=== PATIENT | male | born 1960 ===

== ENCOUNTER 2018-08-19 17:49 | Observation (INO) | payer OTHER ==
--- NOTE | 2018-08-19 19:07 | ED PDOC ---
HPI: Chest Pain Time Seen by Provider: 08/19/18 18:29 Chief Complaint (Nursing): Chest Pain Chief Complaint (Provider): Chest Pain History Per: Patient History/Exam Limitations: no limitations Onset/Duration Of Symptoms: Hrs (x7) Current Symptoms Are (Timing): Still Present Additional Complaint(s): 58 y/o male with a PMHx or HTN, DM and hypercholesterolemia presents to the ED for evaluation of chest pain, since noon. Patient states that while at work today, he developed pressure like pain that has been coming and going since onset. Patient states pain is associated with shortness of breath, chills and shakiness. Patient additionally complains of a dry cough for one month. Patient reports he is compliant with medication. Denies fever and leg swelling. PMD: At [facility] in . Past Medical History Reviewed: Historical Data Vital Signs: Last Vital Signs Temp 98.8 F 08/19/18 17:53 Pulse 122 H 08/19/18 17:53 Resp 20 08/19/18 17:53 BP 140/69 08/19/18 17:53 Pulse Ox 98 08/19/18 17:53 - Medical History PMH: Diabetes, HTN, Hypercholesterolemia - Surgical History Surgical History: No Surg Hx - Family History Family History: States: Diabetes, Hypertension - Social History Current smoker - smoking cessation education provided: No Alcohol: None Drugs: Denies - Home Medications Home Medications: Ambulatory Orders Medication Instructions Recorded Clopidogrel [Plavix] 75 mg PO DAILY #30 tab 08/20/18 GlipiZIDE SR [Glucotrol XL] 5 mg PO DAILY #30 tab 08/20/18 RX: Atorvastatin [Lipitor] 20 mg PO DAILY #30 tab 08/20/18 RX: Lisinopril [Prinivil] 10 mg PO DAILY #30 tab 08/20/18 RX: Metoprolol Tartrate [Lopressor] 50 mg PO BID #60 tablet 08/20/18 RX: Omeprazole 20 mg PO DAILY #30 tablet. 08/20/18 - Allergies Allergies/Adverse Reactions: Allergies Allergy/AdvReac Type Severity Reaction Status Date / Time No Known Allergies Allergy Verified 08/19/18 17:53 Review of Systems ROS Statement: Except As Marked, All Systems Reviewed And Found Negative (as per HPI) Constitutional: Positive for: Chills (and shakiness) Cardiovascular: Positive for: Chest Pain (pressure like ) Respiratory: Positive for: Cough (dry), Shortness of Breath Musculoskeletal: Negative for: Leg Pain (swelling) Physical Exam - Reviewed Nursing Documentation Reviewed: Yes Vital Signs Reviewed: Yes - Physical Exam Appears: Positive for: Non-toxic, No Acute Distress Head Exam: Positive for: ATRAUMATIC, NORMOCEPHALIC Skin: Positive for: Warm, Dry Eye Exam: Positive for: EOMI, PERRL ENT: Positive for: Pharynx Is (clear) Neck: Positive for: Painless ROM, Supple Cardiovascular/Chest: Positive for: Tachycardia (with regular rhythm). Negative for: Murmur Respiratory: Positive for: Normal Breath Sounds. Negative for: Respiratory Distress Gastrointestinal/Abdominal: Positive for: Soft. Negative for: Tenderness Back: Positive for: Normal Inspection. Negative for: Decreased ROM Extremity: Positive for: Other (Diffuse tremors on extremities). Negative for: Swelling Lymphatic: Negative for: Adenopathy Neurologic/Psych: Positive for: Alert, Mood/Affect (Mildly Anxious Affect). Negative for: Motor/Sensory Deficits - Laboratory Results Result Diagrams: 08/20/18 04:20 08/20/18 04:20 - ECG O2 Sat by Pulse Oximetry: 98 (RA) Pulse Ox Interpretation: Normal Medical Decision Making Medical Decision Making: Time: 1853 Impression: Chest pain with cardiac risk factors -- Patient needs hospitalization for serial troponin to rule out ACS, pending ER workup Differentials include but not limited to pneumonia, Pulmonary Embolism, hyperthyroidism, electrolyte abnormalities and dehydration Plan: -- Type and Screen -- EKG -- B-Type Natriuretic -- CMP -- Lact Acid, Plasma -- Magnesium -- Phosphorus -- TSH -- Troponin I -- ED Urine Dipstick -- Troponin I -- ED Urine Dipstick -- CBC with differentials -- D Dimer [COAG] -- PTT -- Prothrombin Time -- CXR Portable -- Aspirin 325 mg PO -- Blood Culture -- Template Clerk -- IV Insertion -- Glucose, Blood, POC 2200 Labs demonstrate elevated lactic acid, otherwise no emergently significant abnormalities. Pt's HR improved with hydration. VANESSA Hu Hospitalist for placement in observation for chest pain to r/o ACS. Scribe Attestation: Documented by Gayle Fam acting as a scribe for Fabienne Jacobs MD. Provider Scribe Attestation: All medical record entries made by the Scribe were at my direction and personally dictated by me. I have reviewed the chart and agree that the record accurately reflects my personal performance of the history, physical exam, medical decision making, and the department course for this patient. I have also personally directed, reviewed, and agree with the discharge instructions and disposition. Disposition - Clinical Impression Clinical Impression: Chest pain Counseled Patient/Family Regarding: Studies Performed, Diagnosis - Disposition Disposition Time: 23:00 Condition: FAIR - Pt Status Changed To: Hospital Disposition Of: Observation - POA Present On Arrival: None
[2018-08-19 19:16] LABS: BASO # 0.1 K/uL (0.0-0.2); EOS # 0.1 K/uL (0.0-0.7); EOS % 1.6 % (0.0-4.0); HEMOGLOBIN 13.9 g/dL (12.0-18.0); LYMPH # 1.4 K/uL (1.0-4.3); LYMPH % 20.7 % (20.0-40.0); MEAN CELL VOLUME 85.8 fl (80.0-94.0); MEAN CORPUSCULAR HEMOGLOBIN 29.2 pg (27.0-31.0); MEAN CORPUSCULAR HGB CONC 34.1 g/dL (33.0-37.0); MEAN PLATELET VOLUME 8.2 fl (7.2-11.7); MONO # 0.5 K/uL (0.0-0.8); MONO % 6.9 % (0.0-10.0); NEUT # 4.8 K/uL (1.8-7.0); NEUT % 69.8 % (50.0-75.0); NRBC % 0.1 % (0.0-0.0); RBC 4.75 Mil/uL (4.40-5.90); RED CELL DISTRIBUTION WIDTH 13.7 % (11.5-14.5); WHITE BLOOD COUNT 6.9 K/uL (4.8-10.8)
[2018-08-19 19:25] LABS: PROTHROMBIN TIME 10.7 Seconds (9.8-13.1)
[2018-08-19 19:26] LABS: PARTIAL THROMBOPLASTIN TIME 29.9 Seconds (25.6-37.1)
[2018-08-19 19:30] LABS: D DIMER < 200 ng/mlDDU (0-230)
[2018-08-19 19:38] LABS: ALB/GLOB RATIO 1.3 (1.0-2.1); ALBUMIN 4.4 g/dL (3.5-5.0); ALT/SGPT 32 U/L (21-72); AST/SGOT 31 U/L (17-59); BLOOD UREA NITROGEN 20 mg/dl (9-20); CALCIUM 10.1 mg/dL (8.4-10.2); GFR NON-AFRICAN AMERICAN > 60
[2018-08-19] MEDS ORDERED: Sodium Chloride 0.9% 1,000 ML IV STA (19:47)
[2018-08-19] MEDS ORDERED: Alum-Mag Hydrox-Simethicone Susp (30 mL) PO PRN (21:22)
--- NOTE | 2018-08-19 21:25 | CP.PCM.HP ---
History of Present Illness - History of Present Illness History of Present Illness: CC: CP HPI: This is a 58 y/o male with MHx significant for DM2, HTN, and HLD who comes in with c/o CP which started at noon. Patient was at work, but not doing any extremely strenuous when he developed pressure like sensation in mid chest. There was no radiation to the arms. There was a burning sensation in his throat however. He did have SOB and felt a little shaky. Denies f/c/n/v/d. States that normally he does not have SOB or SHARIF, except an episode 3 months prior. Patient states that at that time, he went to [place] for similar symptoms. He states he does not remember having and echo or a stress test at the time, just a CXR. He was told his heart was 'fine' but was started on Plavix and a statin he states. He has taken the Plavix, but not the statin. Otherwise he has been taking all his medications. Patient does note some palpitations occasionally, but denies taking OTC cold/congestion medications, energy drinks or similar things. Patient notes that recently he has been having heartburn like symptoms, not part icularly correlated to any food. PCP: [facility] ROS: 14 systems reviewed, negative other than HPI MHx: HTN, HLD, DM2 SHx: None Allergies: NKDA Medications: Per med rec Family Hx: DM2 runs in family Social Hx: Lives with family, no tobacco, no EtOH, no substances/supplements Present on Admission - Present on Admission Any Indicators Present on Admission: No Past Patient History - Past Social History Alcohol: None Drugs: Denies - CARDIAC Hx Hypercholesterolemia: Yes Hx Hypertension: Yes - ENDOCRINE/METABOLIC Hx Diabetes Mellitus Type 2: Yes - GENITOURINARY/GYNECOLOGICAL Hx Genitourinary Disorders: No - PSYCHIATRIC Hx Psychophysiologic Disorder: No Hx Substance Use: No - SURGICAL HISTORY Hx Surgeries: No - ANESTHESIA Hx Anesthesia: No Meds Allergies/Adverse Reactions: Allergies Allergy/AdvReac Type Severity Reaction Status Date / Time No Known Allergies Allergy Verified 08/19/18 17:53 Physical Exam - Constitutional Appears: No Acute Distress - Head Exam Head Exam: ATRAUMATIC, NORMOCEPHALIC - Eye Exam Eye Exam: EOMI, PERRL - ENT Exam ENT Exam: Mucous Membranes Dry - Neck Exam Neck exam: Positive for: Full Rom - Respiratory Exam Respiratory Exam: Clear to Auscultation Bilateral, NORMAL BREATHING PATTERN - Cardiovascular Exam Cardiovascular Exam: Tachycardia, REGULAR RHYTHM, +S1, +S2 - GI/Abdominal Exam GI & Abdominal Exam: Normal Bowel Sounds, Soft - Extremities Exam Extremities exam: Positive for: full ROM, normal inspection - Neurological Exam Neurological exam: Alert, Oriented x3 - Psychiatric Exam Psychiatric exam: Normal Affect, Normal Mood - Skin Skin Exam: Dry, Warm Results - Vital Signs Recent Vital Signs: Last Vital Signs Temp 97.6 F 08/19/18 20:52 Pulse 108 H 08/19/18 20:52 Resp 18 08/19/18 20:52 BP 142/83 08/19/18 20:52 Pulse Ox 97 08/19/18 20:52 - Labs Result Diagrams: 08/19/18 19:00 08/19/18 19:00 Labs: Laboratory Results - last 24 hr 08/19/18 08/19/18 08/19/18 19:00 19:00 19:00 WBC 6.9 RBC 4.75 Hgb 13.9 Hct 40.7 MCV 85.8 MCH 29.2 MCHC 34.1 RDW 13.7 Plt Count 258 MPV 8.2 Neut % (Auto) 69.8 Lymph % (Auto) 20.7 [place] % (Auto) 6.9 Eos % (Auto) 1.6 Baso % (Auto) 1.0 Neut # (Auto) 4.8 Lymph # (Auto) 1.4 [place] # (Auto) 0.5 Eos # (Auto) 0.1 Baso # (Auto) 0.1 PT INR APTT D-Dimer, Quantitative Sodium 138 Potassium 4.8 Chloride 99 Carbon Dioxide 28 Anion Gap 16 BUN 20 Creatinine 0.7 L Est GFR ( Amer) > 60 Est GFR (Non-Af Amer) > 60 Random Glucose 181 H Lactic Acid 2.8 H Calcium 10.1 Phosphorus 3.8 Magnesium 1.7 Total Bilirubin 0.5 AST 31 ALT 32 Alkaline Phosphatase 57 Troponin I < 0.0120 NT-Pro-B Natriuret Pep 66.0 Total Protein 7.7 Albumin 4.4 Globulin 3.3 Albumin/Globulin Ratio 1.3 TSH 3rd Generation 1.42 Blood Type Antibody Screen BBK History Checked 08/19/18 08/19/18 19:00 19:00 WBC RBC Hgb Hct MCV MCH MCHC RDW Plt Count MPV Neut % (Auto) Lymph % (Auto) [place] % (Auto) Eos % (Auto) Baso % (Auto) Neut # (Auto) Lymph # (Auto) [place] # (Auto) Eos # (Auto) Baso # (Auto) PT 10.7 INR 1.0 APTT 29.9 D-Dimer, Quantitative < 200 Sodium Potassium Chloride Carbon Dioxide Anion Gap BUN Creatinine Est GFR ( Amer) Est GFR (Non-Af Amer) Random Glucose Lactic Acid Calcium Phosphorus Magnesium Total Bilirubin AST ALT Alkaline Phosphatase Troponin I NT-Pro-B Natriuret Pep Total Protein Albumin Globulin Albumin/Globulin Ratio TSH 3rd Generation Blood Type A POSITIVE Antibody Screen Negative BBK History Checked No verified bt - EKG Data EKG Interpreted by: Myself EKG shows normal: Sinus rhythm Rate: Tachycardia - EKG Data EKG comments: EKG sinus tach; PVCs on tele - Imaging and Cardiology Chest x-ray Status: Image reviewed by me (no acute findings) Assessment & Plan (1) Chest pain Assessment and Plan: 58 y/o male with HTN, HLD, and DM2 presenting with chest pain, tachycardia, and mildly elevated LA. 1) CP -- r/o ACS; HLD -Tele -Serial trops -AM EKG -Echo in AM -If all workup here is normal, patient needs to be set up with an outpatient stress test for near future -Continue Plavix 75 that patient is on for now; will not give further doses of ASA at this time -Will start on low dose statin, as patient states he was Rx'ed this, but never started it -SLNG PRN 2) Tachycardia -- unclear etiology; appears to be sinus tach, no significant concern for PE given normal D dimer -Will give 1 L NS; consider patient may be somewhat vol depleted 3) Elevated LA -- no evidence of infection -Will hydrate patient overnight -Hold Metformin -Recheck in AM 4) GERD -- appears to have GERD symptoms -Will start on 2 week trial of protonix -Maalox PRN for acute symptoms 5) DM2 -DM diet -ACHS accucheck with SSI -Cont Glipizide -Hold metformin for now 6) HTN -- cont home medications 7) DVT PPx -- Patient is mobile, SCDs for now Status: Acute (2) Tachycardia Status: Acute (3) Elevated lactic acid level Status: Acute (4) GERD (gastroesophageal reflux disease) Status: Acute (5) HLD (hyperlipidemia) Status: Acute (6) HTN (hypertension) Status: Acute (7) DM2 (diabetes mellitus, type 2) Status: Acute (8) DVT prophylaxis Status: Acute
[2018-08-19] MEDS ORDERED: Sodium Chloride 0.9% 1,000 ML IV SCH (21:30)
[2018-08-19] MEDS: Insulin Lispro (humaLOG) 100 Units/ml Inj SC SCH (23:00)
[2018-08-20 06:01] LABS: HEMOGLOBIN 12.2 g/dL (12.0-18.0); MEAN CELL VOLUME 86.2 fl (80.0-94.0); MEAN CORPUSCULAR HEMOGLOBIN 29.4 pg (27.0-31.0); MEAN CORPUSCULAR HGB CONC 34.1 g/dL (33.0-37.0); RBC 4.16 Mil/uL (4.40-5.90); RED CELL DISTRIBUTION WIDTH 13.4 % (11.5-14.5)
[2018-08-20] MEDS: Insulin Lispro (humaLOG) 100 Units/ml Inj SC SCH ×2 (06:35→13:20)
[2018-08-20 06:54] LABS: BLOOD UREA NITROGEN 12 mg/dl (9-20); CALCIUM 8.9 mg/dL (8.4-10.2); GFR NON-AFRICAN AMERICAN > 60
[2018-08-20] MEDS ORDERED: Pantoprazole 40 mg EC Tab PO SCH (09:00)
--- NOTE | 2018-08-20 11:53 | RAD ---
Date of service: 08/19/2018 HISTORY: chest pain COMPARISON: No prior. FINDINGS: LUNGS: No active pulmonary disease. PLEURA: No significant pleural effusion identified, no pneumothorax apparent. CARDIOVASCULAR: No radiographic findings to suggest acute or significant cardiovascular disease. OSSEOUS STRUCTURES: No significant abnormalities. VISUALIZED UPPER ABDOMEN: Normal. OTHER FINDINGS: None. IMPRESSION: No active disease. Concordant results with the preliminary interpretation rendered by the emergency department physician procedure.
--- NOTE | 2018-08-20 12:00 | CARD ---
APPROVED REPORT Date of service: 08/19/2018 EKG Measurement Heart [id number] <Conclusion> Sinus tachycardia Otherwise normal ECG
[2018-08-20 12:06] VITALS: BP 124/81; PULSE 98; RESP 18; TEMP 98.1
--- NOTE | 2018-08-20 13:59 | CP.PCM.DIS ---
<Aleisha Ga - Last Filed: 08/20/18 14:53> Provider - Provider Date of Admission: 08/19/18 20:14 Attending physician: Mary Hu MD Time Spent in preparation of Discharge (in minutes): 45 Diagnosis - Discharge Diagnosis (1) Chest pain Status: Resolved (2) DM2 (diabetes mellitus, type 2) Status: Chronic (3) Elevated lactic acid level Status: Acute (4) GERD (gastroesophageal reflux disease) Status: Acute (5) HLD (hyperlipidemia) Status: Acute (6) HTN (hypertension) Status: Chronic (7) Tachycardia Status: Acute Hospital Course - Lab Results Lab Results: Most Recent Lab Values WBC 5.0 K/uL (4.8-10.8) 08/20/18 04:20 RBC 4.16 Mil/uL (4.40-5.90) L 08/20/18 04:20 Hgb 12.2 g/dL (12.0-18.0) 08/20/18 04:20 Hct 35.9 % (35.0-51.0) 08/20/18 04:20 MCV 86.2 fl (80.0-94.0) 08/20/18 04:20 MCH 29.4 pg (27.0-31.0) 08/20/18 04:20 MCHC 34.1 g/dL (33.0-37.0) 08/20/18 04:20 RDW 13.4 % (11.5-14.5) 08/20/18 04:20 Plt Count 242 K/uL (130-400) 08/20/18 04:20 MPV 8.2 fl (7.2-11.7) 08/19/18 19:00 Neut % (Auto) 69.8 % (50.0-75.0) 08/19/18 19:00 Lymph % (Auto) 20.7 % (20.0-40.0) 08/19/18 19:00 [place] % (Auto) 6.9 % (0.0-10.0) 08/19/18 19:00 Eos % (Auto) 1.6 % (0.0-4.0) 08/19/18 19:00 Baso % (Auto) 1.0 % (0.0-2.0) 08/19/18 19:00 Neut # (Auto) 4.8 K/uL (1.8-7.0) 08/19/18 19:00 Lymph # (Auto) 1.4 K/uL (1.0-4.3) 08/19/18 19:00 [place] # (Auto) 0.5 K/uL (0.0-0.8) 08/19/18 19:00 Eos # (Auto) 0.1 K/uL (0.0-0.7) 08/19/18 19:00 Baso # (Auto) 0.1 K/uL (0.0-0.2) 08/19/18 19:00 PT 10.7 Seconds (9.8-13.1) 08/19/18 19:00 INR 1.0 08/19/18 19:00 APTT 29.9 Seconds (25.6-37.1) 08/19/18 19:00 D-Dimer, Quantitative < 200 ng/mlDDU (0-230) 08/19/18 19:00 Sodium 138 mmol/l (132-148) 08/20/18 04:20 Potassium 3.6 MMOL/L (3.6-5.0) 08/20/18 04:20 Chloride 105 mmol/L (98-107) 08/20/18 04:20 Carbon Dioxide 25 mmol/L (22-30) 08/20/18 04:20 Anion Gap 12 (10-20) 08/20/18 04:20 BUN 12 mg/dl (9-20) 08/20/18 04:20 Creatinine 0.5 mg/dl (0.8-1.5) L 08/20/18 04:20 Est GFR ( Amer) > 60 08/20/18 04:20 Est GFR (Non-Af Amer) > 60 08/20/18 04:20 POC Glucose (mg/dL) 211 mg/dL (65-110) H 08/20/18 10:48 Random Glucose 118 mg/dL (75-110) H 08/20/18 04:20 Lactic Acid 2.5 MMOL/L (0.7-2.1) H 08/20/18 04:20 Calcium 8.9 mg/dL (8.4-10.2) 08/20/18 04:20 Phosphorus 3.8 mg/dl (2.5-4.5) 08/19/18 19:00 Magnesium 1.7 MG/DL (1.6-2.3) 08/19/18 19:00 Total Bilirubin 0.5 mg/dl (0.2-1.3) 08/19/18 19:00 AST 31 U/L (17-59) 08/19/18 19:00 ALT 32 U/L (21-72) 08/19/18 19:00 Alkaline Phosphatase 57 U/L (38-126) 08/19/18 19:00 Troponin I < 0.0120 ng/mL (0.00-0.120) 08/20/18 11:19 NT-Pro-B Natriuret Pep 66.0 pg/ml (0-900) 08/19/18 19:00 Total Protein 7.7 G/DL (6.3-8.2) 08/19/18 19:00 Albumin 4.4 g/dL (3.5-5.0) 08/19/18 19:00 Globulin 3.3 gm/dL (2.2-3.9) 08/19/18 19:00 Albumin/Globulin Ratio 1.3 (1.0-2.1) 08/19/18 19:00 TSH 3rd Generation 1.42 mIU/ML (0.46-4.68) 08/19/18 19:00 Blood Type A POSITIVE 08/19/18 19:00 Blood Type Confirm A POSITIVE 08/19/18 21:00 Antibody Screen Negative 08/19/18 19:00 BBK History Checked No verified bt 08/19/18 19:00 - Hospital Course Hospital Course: 58 y/o M with medical hx of DM2, HTN, and HLD was admitted 08/19/2018 for chest pain. EKG showed sinus tach at rate of 116 bpm, pro-bnp was 66, troponins were 0.0120 x 2, and d-dimer <200. Lactic acid was initially, 2.8, and today was 2.5. Metformin was stopped as a result. CXR was performed and showed no active disease. Echo was done as well. 1) Chest pain (resolved) -Patient will follow up with cardiology as an outpatient for stress test. -Script given for Plavix 75mg PO QD. 2) DM2 -Script given for Glipizide -Metformin has been discontinued due to lactic acidosis (2.5 today). 3) Elevated Lactic acid -Metformin has been discontinued due to lactic acidosis (2.5 today). 4)GERD -Script sent for Omeprazole. 5)Tachycardia (Pulse currently borderline-98bpm) -D dimer <200 -Script sent for Metoprolol 50mg PO BID. 6) HTN -Script sent for Metoprolol 50mg PO BID. 7) HLD -Script sent for Lipitor 20mg PO QD. Discharge Exam - Head Exam Head Exam: ATRAUMATIC, NORMOCEPHALIC - Neck Exam Neck exam: Full Rom - Respiratory Exam Respiratory Exam: Clear to PA & Lateral - Cardiovascular Exam Cardiovascular Exam: REGULAR RHYTHM, +S1, +S2 - Extremities Exam Additional comments: calves nontender - Neurological Exam Neurological exam: Alert, Oriented x3 - Psychiatric Exam Psychiatric exam: Normal Affect, Normal Mood Discharge Plan - Discharge Medications Prescriptions: Atorvastatin [Lipitor] 20 mg PO DAILY #30 tab Clopidogrel [Plavix] 75 mg PO DAILY #30 tab GlipiZIDE SR [Glucotrol XL] 5 mg PO DAILY #30 tab Lisinopril [Prinivil] 10 mg PO DAILY #30 tab Metoprolol Tartrate [Lopressor] 50 mg PO BID #60 tablet Omeprazole 20 mg PO DAILY #30 tablet.dr - Follow Up Plan Condition: GOOD Disposition: HOME/ ROUTINE Instructions: Chest Pain (DC) Additional Instructions: -ff up with PMD jim -Cardio appt at the Cardio clinic for further work up -If chest pain worsens, please return to the Emergency Department Referrals: [facility] [employer] [facility] [Outside] [facility] [Outside] David Lorenz MD [Staff Provider] - <Inga Patton - Last Filed: 08/20/18 15:17> Provider - Provider Date of Admission: 08/19/18 20:14 Attending physician: Mary Hu MD Hospital Course - Lab Results Lab Results: Most Recent Lab Values WBC 5.0 K/uL (4.8-10.8) 08/20/18 04:20 RBC 4.16 Mil/uL (4.40-5.90) L 08/20/18 04:20 Hgb 12.2 g/dL (12.0-18.0) 08/20/18 04:20 Hct 35.9 % (35.0-51.0) 08/20/18 04:20 MCV 86.2 fl (80.0-94.0) 08/20/18 04:20 MCH 29.4 pg (27.0-31.0) 08/20/18 04:20 MCHC 34.1 g/dL (33.0-37.0) 08/20/18 04:20 RDW 13.4 % (11.5-14.5) 08/20/18 04:20 Plt Count 242 K/uL (130-400) 08/20/18 04:20 MPV 8.2 fl (7.2-11.7) 08/19/18 19:00 Neut % (Auto) 69.8 % (50.0-75.0) 08/19/18 19:00 Lymph % (Auto) 20.7 % (20.0-40.0) 08/19/18 19:00 [place] % (Auto) 6.9 % (0.0-10.0) 08/19/18 19:00 Eos % (Auto) 1.6 % (0.0-4.0) 08/19/18 19:00 Baso % (Auto) 1.0 % (0.0-2.0) 08/19/18 19:00 Neut # (Auto) 4.8 K/uL (1.8-7.0) 08/19/18 19:00 Lymph # (Auto) 1.4 K/uL (1.0-4.3) 08/19/18 19:00 [place] # (Auto) 0.5 K/uL (0.0-0.8) 08/19/18 19:00 Eos # (Auto) 0.1 K/uL (0.0-0.7) 08/19/18 19:00 Baso # (Auto) 0.1 K/uL (0.0-0.2) 08/19/18 19:00 PT 10.7 Seconds (9.8-13.1) 08/19/18 19:00 INR 1.0 08/19/18 19:00 APTT 29.9 Seconds (25.6-37.1) 08/19/18 19:00 D-Dimer, Quantitative < 200 ng/mlDDU (0-230) 08/19/18 19:00 Sodium 138 mmol/l (132-148) 08/20/18 04:20 Potassium 3.6 MMOL/L (3.6-5.0) 08/20/18 04:20 Chloride 105 mmol/L (98-107) 08/20/18 04:20 Carbon Dioxide 25 mmol/L (22-30) 08/20/18 04:20 Anion Gap 12 (10-20) 08/20/18 04:20 BUN 12 mg/dl (9-20) 08/20/18 04:20 Creatinine 0.5 mg/dl (0.8-1.5) L 08/20/18 04:20 Est GFR ( Amer) > 60 08/20/18 04:20 Est GFR (Non-Af Amer) > 60 08/20/18 04:20 POC Glucose (mg/dL) 211 mg/dL (65-110) H 08/20/18 10:48 Random Glucose 118 mg/dL (75-110) H 08/20/18 04:20 Lactic Acid 2.5 MMOL/L (0.7-2.1) H 08/20/18 04:20 Calcium 8.9 mg/dL (8.4-10.2) 08/20/18 04:20 Phosphorus 3.8 mg/dl (2.5-4.5) 08/19/18 19:00 Magnesium 1.7 MG/DL (1.6-2.3) 08/19/18 19:00 Total Bilirubin 0.5 mg/dl (0.2-1.3) 08/19/18 19:00 AST 31 U/L (17-59) 08/19/18 19:00 ALT 32 U/L (21-72) 08/19/18 19:00 Alkaline Phosphatase 57 U/L (38-126) 08/19/18 19:00 Troponin I < 0.0120 ng/mL (0.00-0.120) 08/20/18 11:19 NT-Pro-B Natriuret Pep 66.0 pg/ml (0-900) 08/19/18 19:00 Total Protein 7.7 G/DL (6.3-8.2) 08/19/18 19:00 Albumin 4.4 g/dL (3.5-5.0) 08/19/18 19:00 Globulin 3.3 gm/dL (2.2-3.9) 08/19/18 19:00 Albumin/Globulin Ratio 1.3 (1.0-2.1) 08/19/18 19:00 TSH 3rd Generation 1.42 mIU/ML (0.46-4.68) 08/19/18 19:00 Blood Type A POSITIVE 08/19/18 19: Blood Type Confirm A POSITIVE 08/19/18 21:00 Antibody Screen Negative 08/19/18 19:00 BBK History Checked No verified bt 08/19/18 19:00 Attending/Attestation - Attestation I have personally seen and examined this patient.: Yes I have fully participated in the care of the patient.: Yes I have reviewed all pertinent clinical information, including history, physical exam and plan: Yes Notes (Text): 1. Chest Pain, ACS ruled out , pain prob GERD - trop x 3 negative - ECHO normal wall motion -EKG : no caute change - start PPI - cont zplavix, stat BB, TOMAS and statin - ff up Cardio clinic jim , further cardiac work up as outpt 2. Lactic Acidosis prob sec to Metformin - d/c Metformin 3. DM type II cont Glipizide
[2018-08-20 15:54] VITALS: O2SAT 98
--- NOTE | 2018-08-20 16:23 | CARD ---
APPROVED REPORT Date of service: 08/20/2018 EXAM: Two-dimensional and M-mode echocardiogram with Doppler and color Doppler. Other Information Quality : GoodRhythm : NSR INDICATION Chest Pain 2D DIMENSIONS IVSd0.90 (0.7-1.1cm)LVDd4.37 (3.9-5.9cm) LVOT Diameter1.95 (1.8-2.4cm)PWd0.69 (0.7-1.1cm) IVSs0.96 (0.8-1.2cm)LVDs3.11 (2.5-4.0cm) FS (%) 28.9 %PWs1.03 (0.8-1.2cm) M-Mode DIMENSIONS Left Atrium (MM)3.89 (2.5-4.0cm)IVSd0.83 (0.7-1.1cm) Aortic Root3.94 (2.2-3.7cm)LVDd5.46 (4.0-5.6cm) Aortic Cusp Exc.1.76 (1.5-2.0cm)PWd0.80 (0.7-1.1cm) IVSs0.97 cmFS (%) 38 % LVDs3.36 (2.0-3.8cm)PWs1.41 cm Aortic Valve AoV Peak Ueadvmxf138.1cm/sAoV VTI20.7cmAO Peak GR.6mmHg LVOT Peak Juoopefx51.1cm/sLVOT VTI19.55cmAO Mean GR.3mmHg DUC (VMAX)1.83uq8CKZ (VTI)1.63cm2 Mitral Valve E/A ratio0.0 TDI E/Lateral E'0.0E/Medial E'0.0 Tricuspid Valve TR Peak [id number]/sRAP [id number] Peak Gr.23mmHg CUPS96uxOb LEFT VENTRICLE The left ventricle is normal size. There is normal left ventricular wall thickness. The left ventricular systolic function is normal. The estimated ejection fraction is 55-60%. No regional wall motion abnormalities noted.. Transmitral Doppler flow pattern is Grade I-abnormal relaxation pattern. No left ventricle thrombus noted on this study. There is no ventricular septal defect visualized. There is no left ventricular aneurysm. There is no mass noted in the left ventricle. RIGHT VENTRICLE The right ventricle is normal size. There is normal right ventricular wall thickness. The right ventricular systolic function is normal. ATRIA The left atrium size is normal. The right atrium size is normal. The interatrial septum is intact with no evidence for an atrial septal defect. AORTIC VALVE The aortic valve is normal in structure. No aortic regurgitation is present. There is no aortic valvular stenosis. There is no aortic valvular vegetation. MITRAL VALVE The mitral valve is normal in structure. There is no evidence of mitral valve prolapse. There is no mitral valve stenosis. There is no mitral valve regurgitation noted. TRICUSPID VALVE The tricuspid valve is normal in structure. There is trace to mild tricuspid regurgitation. RVSP is calculated at 28 mm Hg. There is no tricuspid valve prolapse or vegetation. There is no tricuspid valve stenosis. PULMONIC VALVE The pulmonary valve is normal in structure. There is no pulmonic valvular regurgitation. There is no pulmonic valvular stenosis. GREAT VESSELS The aortic root is normal in size. The ascending aorta is normal in size. The pulmonary artery is normal. The IVC is normal in size and collapses >50% with inspiration. PERICARDIAL EFFUSION There is no pericardial effusion. There is no pleural effusion. <Conclusion> The estimated ejection fraction is 55-60%. Transmitral Doppler flow pattern is Grade I-abnormal relaxation pattern. The left atrium size is normal. There is trace to mild tricuspid regurgitation. RVSP is calculated at 28 mm Hg.
== END 2018-08-20 16:00 | disposition home or self-care (01) ==
LOC: H.ER 17:49 → H.ERHOLD 20:14 → H.TEL 22:20
PROVIDERS: ADMIT Internal Medicine; ATTEND Internal Medicine
DX: R07.9 Chest pain, unspecified (principal); I10 Essential (primary) hypertension; E11.9 Type 2 diabetes mellitus without complications; E78.00 Pure hypercholesterolemia, unspecified; E78.5 Hyperlipidemia, unspecified; E87.2 Acidosis; K21.9 Gastro-esophageal reflux disease without esophagitis; Z79.02 Long term (current) use of antithrombotics/antiplatelets; Z83.3 Family history of diabetes mellitus; Z79.84 Long term (current) use of oral hypoglycemic drugs; R00.0 Tachycardia, unspecified; R00.2 Palpitations; R74.0 Nonspecific elevation of levels of transaminase and lactic acid dehydrogenase [LDH]
CPT/HCPCS: 36415; 71045; 80048; 80053; 82948; 83605; 83735; 83880; 84100; 84443; 84484; 85025; 85027; 85378; 85610; 85730; 86850; 86900; 87040; 93005; 93306; 96360; 99283; G0378; J7030

== ENCOUNTER 2019-01-24 09:57 | Inpatient (IN) | payer OTHER, SELFPAY ==
--- NOTE | 2019-01-24 12:06 | ED PDOC ---
Lower Extremity Pain/Injury Time Seen by Provider: 01/24/19 11:36 Chief Complaint (Nursing): Lower Extremity Problem/Injury Chief Complaint (Provider): Lower Extremity Problem/Injury History Per: Patient History/Exam Limitations: no limitations Onset/Duration Of Symptoms: Persistent (x2 weeks) Current Symptoms Are (Timing): Still Present Additional Complaint(s): 58 year old male with past history of diabetes and hypertension, presents to the emergency department with a complaint of right foot pain ongoing for 2 weeks. Patient states he stepped on a nail and took antibiotics from his primary doctor upon onset. A week after, the wound had purulent discharge and was incised and drain. 3 days afterwards, wound was incised and drained again for discharge. Patient arrives today as wound continues to drain, however, began to feel throbbing pain. Otherwise, patient denies fever, chills, or further complaints. PCP: none provided Past Medical History Reviewed: Historical Data, Nursing Documentation, Vital Signs Vital Signs: Last Vital Signs Temp 98.2 F 01/24/19 10:31 Pulse 112 H 01/24/19 10:31 Resp 18 01/24/19 10:31 BP 133/85 01/24/19 10:31 Pulse Ox 99 01/24/19 10:31 - Medical History PMH: Diabetes, HTN, Hypercholesterolemia - Family History Family History: States: Diabetes, Hypertension - Social History Current smoker - smoking cessation education provided: No Alcohol: None Drugs: Denies - Home Medications Home Medications: Ambulatory Orders Medication Instructions Recorded Clopidogrel [Plavix] 75 mg PO DAILY #30 tab 08/20/18 Amoxicillin/Clavulanate [Augmentin 1 tab PO Q12 01/24/19 875 MG-125 MG Tab] Glipizide [Glucotrol] 10 mg PO DAILY 01/24/19 HCTZ/Losartan Potassium [Hyzaar 1 tab PO DAILY 01/24/19 12.5 mg-50 mg] MetFORMIN [glucoPHAGE] 1,000 mg PO BID 01/24/19 Metoprolol Tartrate [Lopressor] 50 mg PO Q12 01/24/19 - Allergies Allergies/Adverse Reactions: Allergies Allergy/AdvReac Type Severity Reaction Status Date / Time No Known Allergies Allergy Verified 01/24/19 10:31 Review of Systems ROS Statement: Except As Marked, All Systems Reviewed And Found Negative Constitutional: Negative for: Fever, Chills Musculoskeletal: Positive for: Foot Pain (right-sided with discharge) Physical Exam - Reviewed Nursing Documentation Reviewed: Yes Vital Signs Reviewed: Yes - Physical Exam Appears: Positive for: No Acute Distress Head Exam: Positive for: ATRAUMATIC, NORMOCEPHALIC Skin: Positive for: Warm, Dry Eye Exam: Positive for: EOMI, PERRL ENT: Negative for: Pharyngeal Erythema, Tonsillar Exudate Neck: Positive for: Painless ROM, Supple Cardiovascular/Chest: Positive for: Regular Rate, Rhythm. Negative for: Murmur Respiratory: Positive for: Normal Breath Sounds. Negative for: Respiratory Distress Gastrointestinal/Abdominal: Positive for: Soft. Negative for: Tenderness Back: Positive for: Normal Inspection. Negative for: Muscle Spasm Extremity: Positive for: Swelling (right-sided diffusely to forefoot not including toe), Other (1.5cm long wound with slight gapping, yellow, dried eschar, and tenderness to right plantar forefoot). Negative for: Deformity (right foot) Lymphatic: Negative for: Adenopathy Neurological/Psych: Positive for: Awake. Negative for: Motor/Sensory Deficits - Laboratory Results Result Diagrams: 01/24/19 13:00 01/24/19 13:00 - ECG O2 Sat by Pulse Oximetry: 99 (RA) Pulse Ox Interpretation: Normal Medical Decision Making Medical Decision Making: Initial Impression: right foot wound infection Differential diagnosis includes but not limited to: cellulitis; foreign body; osteomyelitis Initial Plan: * Labs * Accucheck * XR right foot Time: 1145 --Case discussed with podiatry resident who will evaluate patient at bedside. 1230p Pt to be hospitalized for osteomyelitis. VANESSA Hayden Hospitalist DW pt plan of care. 150p Labs demonstrate hyperglycemia Scribe Attestation: Documented by Charisse Morin, acting as a scribe for Fabienne Jacobs MD.. Provider Scribe Attestation: All medical record entries made by the Scribe were at my direction and personally dictated by me. I have reviewed the chart and agree that the record accurately reflects my personal performance of the history, physical exam, medical decision making, and the department course for this patient. I have also personally directed, reviewed, and agree with the discharge instructions and disposition. Disposition - Clinical Impression Clinical Impression: HTN (hypertension), Diabetic foot infection Counseled Patient/Family Regarding: Studies Performed, Diagnosis - Disposition Disposition Time: 12:30 Condition: FAIR - Pt Status Changed To: Hospital Disposition Of: Inpatient - Admit Certification Admit to Inpatient:: After my assessment, the patient will require hospitalization for at least two midnights. This is because of the severity of symptoms shown, intensity of services needed, and/or the medical risk in this patient being treated as an outpatient. - POA Present On Arrival: Poor Glycemic Control, Surgical Site Infection
[2019-01-24] MEDS ORDERED: Piperacillin/Tazobact 3.375 GM in Sodium Chloride 0.9% 100 ML IVPB STA (12:18)
[2019-01-24] MEDS ORDERED: Piperacillin/Tazobact 3.375 gm Inj IVPB ONE (12:30)
[2019-01-24] MEDS ORDERED: Vancomycin 1 g Inj ONE (12:30)
--- NOTE | 2019-01-24 12:58 | CP.PCM.CON ---
History of Present Illness - History of Present Illness History of Present Illness: Podiatry consult note for attending Dr. Tran: 58 year old male patient with PMH of DM, HTN and HLP seen and evaluated in the ED for right foot ulcer. Patient states that 2 weeks ago he stepped over a nail. 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 He states that he went to a interlocking and signal mechanic 3 days later at [place] who drain some pus from the wound then prescribed him an antibiotic (Augmentin) and local wound care with saline. Patient states that he finished one round of Abx and started another one but no improvement. he states that he went again 3 days ago to his interlocking and signal mechanic who drains some pus again from the wound. patient states that he decided to come to the ED as his foot is not improving. Patient denies any pain now. He denies any other pedal complaint. He denies any recent fevers, nausea, vomiting, cough,and shortness of breath. PMHx: DM, HTN and HLP PSHx: I&D right foot Allergies: NKDA Social Hx: denied tobacco, alcohol or rec drugs. Review of Systems - Review of Systems Review of Systems: As per HPI - Constitutional Constitutional: As Per HPI Past Patient History - Past Medical History & Family History Past Medical History?: Yes - Past Social History Alcohol: None Drugs: Denies - CARDIAC Hx Hypercholesterolemia: Yes Hx Hypertension: Yes - ENDOCRINE/METABOLIC Hx Diabetes Mellitus Type 2: Yes - MUSCULOSKELETAL/RHEUMATOLOGICAL Hx Falls: No - GENITOURINARY/GYNECOLOGICAL Hx Genitourinary Disorders: No - PSYCHIATRIC Hx Psychophysiologic Disorder: No Hx Substance Use: No - SURGICAL HISTORY Hx Surgeries: No - ANESTHESIA Hx Anesthesia: No Hx Anesthesia Reactions: No Meds Allergies/Adverse Reactions: Allergies Allergy/AdvReac Type Severity Reaction Status Date / Time No Known Allergies Allergy Verified 01/24/19 10:31 - Medications Medications: Current Medications Vancomycin HCl 1 gm/ Sodium (Chloride) 250 mls @ 166.667 mls/hr IV STAT STA; Protocol Stop: 01/24/19 13:47 Piperacillin Sod/Tazobactam (Sod 3.375 gm/ Sodium Chloride) 100 mls @ 100 mls/hr IVPB STAT STA; Protocol Stop: 01/24/19 13:17 Physical Exam - Constitutional Appears: Well, Non-toxic, No Acute Distress - Head Exam Head Exam: ATRAUMATIC, NORMOCEPHALIC - Extremities Exam Additional comments: Right lower extremity focused exam: Vascular: DP/PT are 2/4, Cap refill < 3 seconds to all digits, Temp gradient warm to cool from proximal to distal, no edema appreciated to b/l extremities. Neuro: Gross sensation intact, protective sensation diminished. Derm: An ulcer noted in the plantar aspect of the 2nd MPJ 1.9 cm X 1.2 cm X 0.5 cm. Base is necrotic. positive purulent drainage noted. Positive tracking, positive undermining, positive probe to bone. Mild lynsey-ulcerative erythema noted. MSK: Muscle power 5/5 to all groups, No pain noted on palpating the lynsey- ulcerative areas. - Neurological Exam Neurological exam: Alert, Oriented x3 - Psychiatric Exam Psychiatric exam: Normal Affect, Normal Mood Results - Vital Signs Recent Vital Signs: Last Vital Signs Temp 98.2 F 01/24/19 10:31 Pulse 112 H 01/24/19 10:31 Resp 18 01/24/19 10:31 BP 133/85 01/24/19 10:31 Pulse Ox 99 01/24/19 12:35 - Labs Result Diagrams: 01/24/19 13:00 01/24/19 13:00 Assessment & Plan - Assessment and Plan (Free Text) Assessment: 58 year old male patient with PMH of DM, HTN and HLP seen and evaluated in the ED for right foot ulcer. Plan: Patient seen and evaluated at the ED. Discussed in detail with Dr. Tran Charts, labs and vitals reviewed; Afebrile, WBC 5.7. Ordered ESR/CRP. Wound culture collected and sent to lab. Right foot 3 views X-ray; No acute findings suggestive of OM. LE CEDRICK/PVR ordered. Ordered Right foot MRI Ulcer cleaned with betadine then dressed with DSD Ordered Bactroban to be added to the dressing starting tomorrow. ID consulted. ID on board Reccs appreciated. Patient received stat dose of IV abx in the ED Patient will be admitted by the primary team. Thank you for the consult. Podiatry will follow up the patient while in house. - Date & Time Date: 01/24/19 Time: 12:48
[2019-01-24 13:19] LABS: VENOUS BLOOD GAS BASE EXCESS 3.7 mmol/L (0.0-2.0); VENOUS BLOOD GAS PCO2 54 mmHg (40-60); VENOUS BLOOD GAS PO2 25 mm/Hg (30-55); VENOUS BLOOD PH 7.36 (7.32-7.43)
--- NOTE | 2019-01-24 13:29 | CP.PCM.HP ---
<Yoselin Sood - Last Filed: 01/24/19 14:00> History of Present Illness - History of Present Illness History of Present Illness: 58 yo male with pmhx of diabetes and hypertension seen and evaluated for right foot ulcer. Patient is AAOx3 and son is noted to be at bedside. States he stepped on a nail 2 weeks ago, and because of his neuropathy he was not able to feel the pain. States he went to [place] card dealer a few days later who drained the area for him and also prescribed augmentib. Patient states he has been taking the antibiotics however has noticed little improvement. Denies any other pedal or medical complains. Denies f/n/v/sob/chest pain/diarrhea/constipation PMD: none provided PMHx: DM, HTN PSHx: I&D right foot Allergies: NKDA Social Hx: denied tobacco, alcohol or rec drugs. Present on Admission - Present on Admission Any Indicators Present on Admission: No Review of Systems - Constitutional Constitutional: As Per HPI - Respiratory Respiratory: absent: Cough - Gastrointestinal Gastrointestinal: absent: Abdominal Pain, Constipation - Genitourinary Genitourinary: absent: Dysuria, Urinary Incontinence - Neurological Neurological: absent: Behavioral Changes - Psychiatric Psychiatric: absent: Depression Past Patient History - Past Medical History & Family History Past Medical History?: Yes - Past Social History Alcohol: None Drugs: Denies - CARDIAC Hx Hypercholesterolemia: Yes Hx Hypertension: Yes - ENDOCRINE/METABOLIC Hx Diabetes Mellitus Type 2: Yes - MUSCULOSKELETAL/RHEUMATOLOGICAL Hx Falls: No - GENITOURINARY/GYNECOLOGICAL Hx Genitourinary Disorders: No - PSYCHIATRIC Hx Psychophysiologic Disorder: No Hx Substance Use: No - SURGICAL HISTORY Hx Surgeries: No - ANESTHESIA Hx Anesthesia: No Hx Anesthesia Reactions: No Meds Allergies/Adverse Reactions: Allergies Allergy/AdvReac Type Severity Reaction Status Date / Time No Known Allergies Allergy Verified 01/24/19 10:31 Physical Exam - Constitutional Appears: Well, Non-toxic, No Acute Distress - Head Exam Head Exam: ATRAUMATIC, NORMOCEPHALIC - Eye Exam Eye Exam: Normal appearance Pupil Exam: NORMAL ACCOMODATION - ENT Exam ENT Exam: Mucous Membranes Moist - Respiratory Exam Respiratory Exam: Clear to Auscultation Bilateral, NORMAL BREATHING PATTERN - Cardiovascular Exam Cardiovascular Exam: REGULAR RHYTHM, +S1, +S2 - Extremities Exam Additional comments: Right extremity wrapped in bandage, toes visible which are warm with good capillary refill and no motor/sensory grossly in tact. Popliteal pulse weakly palpable on the right lower extremity - Neurological Exam Neurological exam: Alert, Oriented x3 - Psychiatric Exam Psychiatric exam: Normal Affect Results - Vital Signs Recent Vital Signs: Last Vital Signs Temp 98.2 F 01/24/19 10:31 Pulse 112 H 01/24/19 10:31 Resp 18 01/24/19 10:31 BP 133/85 01/24/19 10:31 Pulse Ox 99 01/24/19 12:35 - Labs Result Diagrams: 01/24/19 13:00 01/24/19 13:00 Labs: Laboratory Results - last 24 hr 01/24/19 13:16 pO2 25 L VBG pH 7.36 VBG pCO2 54 VBG HCO3 26.3 VBG Total CO2 32.2 H VBG O2 Sat (Calc) 55.5 VBG Base Excess 3.7 H VBG Potassium 4.4 Sodium 134.0 Chloride 99.0 Glucose 307 H Lactate 2.0 FiO2 21.0 Venous Blood Potassium 4.4 Assessment & Plan - Assessment and Plan (Free Text) Assessment: 58 yo male with pmhx of diabetes and hypertension seen and evaluated in the ED for right foot puncture wound with possible osteomyelitis. Patient has failed outpatient augmentin. Right foot x-rays and MRI ordered. ID consult ordered. Plan: Right foot puncture wound -Continue with vancomycin 1 gm q12 and zosyn 3.375 q6 -Wound cultures ordered and pending -Blood cultures ordered and pending - f/u CBC in the AM. - F/u ESR/CRP - X-ray of the right foot: no foreign body noted, no cortical erosions noted - MRI of the right foot ordered and pending -Podiatry on board; appreciate recs: recommends MRI of the right foot, and ID consult -ID on board; appreciate recs Diabetes Mellitus - continue with humalog, metformin, and glipizide - Hypoglycemia treatment protocol Hypertension - HCTZ/Losartan Prophylaxis - Hold off on DVT prophylaxis; pending podiatry recs. Diet - Consistent carbohydrate Patient seen and Discussed case with Dr. Catracho Sood, PGY1 <Laura Hayden - Last Filed: 01/24/19 16:16> Results - Vital Signs Recent Vital Signs: Last Vital Signs Temp 97.7 F 01/24/19 15:28 Pulse 88 01/24/19 15:28 Resp 18 01/24/19 15:28 BP 122/68 01/24/19 15:28 Pulse Ox 100 01/24/19 15:28 - Labs Result Diagrams: 01/24/19 13:00 01/24/19 13:00 Labs: Laboratory Results - last 24 hr 01/24/19 01/24/19 01/24/19 13:00 13:00 13:16 WBC 5.7 RBC 4.76 Hgb 13.9 Hct 40.9 MCV 86.0 MCH 29.3 MCHC 34.0 RDW 13.2 Plt Count 324 MPV 8.3 Neut % (Auto) 63.5 Lymph % (Auto) 29.7 [place] % (Auto) 5.3 Eos % (Auto) 0.8 Baso % (Auto) 0.7 Neut # (Auto) 3.7 Lymph # (Auto) 1.7 [place] # (Auto) 0.3 Eos # (Auto) 0.0 Baso # (Auto) 0.0 ESR 16 pO2 25 L VBG pH 7.36 VBG pCO2 54 VBG HCO3 26.3 VBG Total CO2 32.2 H VBG O2 Sat (Calc) 55.5 VBG Base Excess 3.7 H VBG Potassium 4.4 Glucose 307 H Lactate 2.0 FiO2 21.0 Sodium 137 134.0 Potassium 4.6 Chloride 98 99.0 Carbon Dioxide 29 Anion Gap 15 BUN 18 Creatinine 0.5 L Est GFR ( Amer) > 60 Est GFR (Non-Af Amer) > 60 Random Glucose 299 H Calcium 9.6 Total Bilirubin 0.6 AST 19 ALT 20 L D Alkaline Phosphatase 97 Total Protein 7.5 Albumin 4.3 Globulin 3.2 Albumin/Globulin Ratio 1.4 Venous Blood Potassium 4.4 Attending/Attestation - Attestation I have personally seen and examined this patient.: Yes I have fully participated in the care of the patient.: Yes I have reviewed all pertinent clinical information: Yes Notes (Text): 01/24/19 16:16 Agree with findings and plan as above.
[2019-01-24 13:33] LABS: BASO % 0.7 % (0.0-2.0); EOS % 0.8 % (0.0-4.0); HEMOGLOBIN 13.9 g/dL (12.0-18.0); LYMPH # 1.7 K/uL (1.0-4.3); LYMPH % 29.7 % (20.0-40.0); MEAN CORPUSCULAR HEMOGLOBIN 29.3 pg (27.0-31.0); MEAN PLATELET VOLUME 8.3 fl (7.2-11.7); MONO # 0.3 K/uL (0.0-0.8); MONO % 5.3 % (0.0-10.0); NEUT # 3.7 K/uL (1.8-7.0); NEUT % 63.5 % (50.0-75.0); NRBC % 0.1 % (0.0-0.0); RBC 4.76 Mil/uL (4.40-5.90); RED CELL DISTRIBUTION WIDTH 13.2 % (11.5-14.5); WHITE BLOOD COUNT 5.7 K/uL (4.8-10.8)
--- NOTE | 2019-01-24 13:34 | RAD ---
Date of service: 01/24/2019 PROCEDURE: Right Foot Radiographs. HISTORY: RIGHT foot wound r/o osteo/foreign body COMPARISON: None. FINDINGS: BONES: No acute fracture or destructive bony lesion identified. No erosive changes are appreciated with suggest osteomyelitis at this time. There is a deformity of the 5th digit including limited lateral subluxation of the distal phalanx relative to the proximal phalanx with degenerative changes appreciated throughout the interphalangeal joints diffusely as well as the 1st metatarsophalangeal joint. JOINTS: No subluxation or dislocation. SOFT TISSUES: Vascular calcifications are identified anteriorly as well as posteriorly at the level of the ankle and dorsal midfoot. OTHER FINDINGS: None. IMPRESSION: No overt radiographic pattern to suggest osteomyelitis. Degenerative changes seen as discussed above as well as likely degenerative lateral subluxation of the distal phalanx left 5th digit laterally. No acute fracture or dislocation appreciated.
[2019-01-24] MEDS ORDERED: Dextrose 50% SYRINGE Inj (50 ml) IV PRN (13:35)
[2019-01-24] MEDS ORDERED: Glucagon Recombinant 1 mg Inj IM PRN (13:35)
--- NOTE | 2019-01-24 13:35 | RAD ---
Date of service: 01/24/2019 HISTORY: foot infection admission COMPARISON: Portable chest 08/19/2018. FINDINGS: LUNGS: No active pulmonary disease. PLEURA: No significant pleural effusion identified, no pneumothorax apparent. CARDIOVASCULAR: No aortic atherosclerotic calcification present. Normal cardiac size. No pulmonary vascular congestion. OSSEOUS STRUCTURES: No significant abnormalities. VISUALIZED UPPER ABDOMEN: Normal. OTHER FINDINGS: None. IMPRESSION: No interval acute cardiopulmonary disease appreciated.
[2019-01-24 13:44] LABS: ALB/GLOB RATIO 1.4 (1.0-2.1); ALBUMIN 4.3 g/dL (3.5-5.0); ALT/SGPT 20 U/L (21-72); AST/SGOT 19 U/L (17-59); BLOOD UREA NITROGEN 18 mg/dl (9-20); CALCIUM 9.6 mg/dL (8.4-10.2); GFR NON-AFRICAN AMERICAN > 60
[2019-01-24] MEDS: Piperacillin/Tazobact 3.375 GM in Sodium Chloride 0.9% 100 ML IVPB SCH ×2 (14:45→19:55)
[2019-01-24] MEDS ORDERED: Mupirocin 2% Oint 1GM UD TOP SCH (17:00)
[2019-01-24] MEDS: Insulin Lispro (humaLOG) 100 Units/ml Inj SC SCH ×2 (19:07→22:05)
[2019-01-25] MEDS: Piperacillin/Tazobact 3.375 GM in Sodium Chloride 0.9% 100 ML IVPB SCH ×3 (02:12→14:23)
[2019-01-25 08:09] VITALS: PULSE 76; RESP 19; TEMP 97.8; O2SAT 98
[2019-01-25] MEDS ORDERED: HCTZ/Losartan 12.5/50 Tab PO SCH (09:00)
[2019-01-25] MEDS: Insulin Lispro (humaLOG) 100 Units/ml Inj SC SCH ×2 (09:12→12:34)
[2019-01-25 09:14] VITALS: BP 118/78
--- NOTE | 2019-01-25 09:36 | CP.PCM.PN ---
Subjective - Date & Time of Evaluation Date of Evaluation: 01/25/19 Time of Evaluation: 08:30 Objective - Vital Signs/Intake and Output Vital Signs (last 24 hours): Temp Pulse Resp BP Pulse Ox 97.8 F 76 19 118/78 98 01/25/19 08:08 01/25/19 09:13 01/25/19 08:08 01/25/19 09:13 01/25/19 08:08 - Medications Medications: Current Medications Clopidogrel Bisulfate (Plavix) 75 mg PO DAILY [facility] Last Admin: 01/25/19 09:20 Dose: 75 mg Dextrose (Dextrose 50% Inj) 0 ml IV STAT PRN; Protocol PRN Reason: Hypoglycemia Protocol Dextrose (Glutose 15) 0 gm PO ONCE PRN; Protocol PRN Reason: Hypoglycemia Protocol Glipizide (Glucotrol) 10 mg PO DAILY [facility] Last Admin: 01/25/19 09:12 Dose: 10 mg Glucagon (Glucagen Diagnostic Kit) 0 mg IM STAT PRN; Protocol PRN Reason: Hypoglycemia Protocol HCTZ/Losartan Potassium (Hyzaar 12.5 Mg-50 Mg) 1 tab PO DAILY [facility] Last Admin: 01/25/19 09:13 Dose: 1 tab Piperacillin Sod/Tazobactam (Sod 3.375 gm/ Sodium Chloride) 100 mls @ 100 mls/hr IVPB Q6H [facility]; Protocol Last Admin: 01/25/19 09:16 Dose: 100 mls/hr Vancomycin HCl 1 gm/ Sodium (Chloride) 250 mls @ 166.667 mls/hr IVPB Q12@0100,1300 [place]; Protocol Last Admin: 01/25/19 00:22 Dose: 166.667 mls/hr Insulin Human Lispro (Humalog) 0 units SC ACHS [facility]; Protocol Last Admin: 01/25/19 09:12 Dose: 3 units Metformin HCl (Glucophage) 1,000 mg PO BID [facility] Last Admin: 01/24/19 19:54 Dose: Not Given Metoprolol Tartrate (Lopressor) 50 mg PO Q12 [facility] Last Admin: 01/25/19 09:13 Dose: 50 mg Mupirocin (Bactroban Ointment) 1 applic TOP BID [facility] Last Admin: 01/25/19 09:12 Dose: 1 applic - Labs Labs: 01/24/19 13:00 01/24/19 13:00
--- NOTE | 2019-01-25 11:11 | CP.PCM.CON ---
History of Present Illness - History of Present Illness History of Present Illness: Infectious Disease Consultation Note- asked to see this patient at the request of Hospitalist for foot ulcer/infection. HPI- Patient is a 58-year-old male with past medical history of diabetes and hypertension minute for evaluation of his right foot ulcer. Patient states that 2 weeks ago while at work he stepped on some nail and because of his neuropathy he was unable to feel the pain and then he noticed that his foot was getting swollen on the bottom and he was having some discharge he went to a local clinic where he was given antibiotic namely Augmentin and he was discharged home. He states he was not feeling much better and he decided to come here for further evaluation. He denies any fever denies any chills denies any nausea denies any vomiting, he states he had minimal discharge from the right plantar foot region where he is The Nail but since Then It Has Dried up. He Has Remained Afebrile and Has Normal White Blood Cell Count so Far This Admission and He Had an X-Ray of His Foot That As per Report Is Not Suggestive of Any Osteomyelitis. PMD: none provided PMHx: DM, HTN PSHx: I&D right foot Allergies: NKDA Social Hx: denied tobacco, alcohol or rec drugs. Review of Systems - Review of Systems Review of Systems: Review of systems Patient denies any headaches, denies any cough, denies any shortness of breath, denies any chest pain, denies any nausea vomiting, denies any abdominal pain, denies any diarrhea, denies any dysuria denies any fever or chills. right heel with small ulcer after stepping on nail and had minimal discharge which has now dried up. Denies any recent travel Denies any sick contacts Denies any animal contact Past Patient History - Past Medical History & Family History Past Medical History?: Yes - Past Social History Smoking Status: Never Smoked Home Situation {Lives}: With Family - CARDIAC Hx Hypercholesterolemia: Yes Hx Hypertension: Yes - PULMONARY Hx Respiratory Disorders: No - NEUROLOGICAL Hx Neurological Disorder: No - ENDOCRINE/METABOLIC Hx Diabetes Mellitus Type 2: Yes - HEMATOLOGICAL/ONCOLOGICAL Hx Blood Disorders: No - MUSCULOSKELETAL/RHEUMATOLOGICAL Hx Falls: No - GENITOURINARY/GYNECOLOGICAL Hx Genitourinary Disorders: No - PSYCHIATRIC Hx Psychophysiologic Disorder: No - SURGICAL HISTORY Hx Surgeries: No - ANESTHESIA Hx Anesthesia: No Hx Anesthesia Reactions: No Meds Home Medications: Home Medication List Medication Instructions Recorded Confirmed Type Ciprofloxacin [Cipro] 500 mg PO Q12 #20 tab 01/25/19 Rx Clopidogrel [Plavix] 75 mg PO DAILY #30 tab 01/25/19 Rx Glipizide [Glucotrol] 10 mg PO DAILY #30 tablet 01/25/19 Rx HCTZ/Losartan Potassium [Hyzaar 1 tab PO DAILY #30 tab 01/25/19 Rx 12.5 mg-50 mg] MetFORMIN [glucoPHAGE] 1,000 mg PO BID #60 tab 01/25/19 Rx Metoprolol Tartrate [Lopressor] 50 mg PO Q12 #30 tablet 01/25/19 Rx Allergies/Adverse Reactions: Allergies Allergy/AdvReac Type Severity Reaction Status Date / Time No Known Allergies Allergy Verified 01/24/19 10:31 - Medications Medications: Current Medications Clopidogrel Bisulfate (Plavix) 75 mg PO DAILY [facility] Last Admin: 01/25/19 09:20 Dose: 75 mg Dextrose (Dextrose 50% Inj) 0 ml IV STAT PRN; Protocol PRN Reason: Hypoglycemia Protocol Dextrose (Glutose 15) 0 gm PO ONCE PRN; Protocol PRN Reason: Hypoglycemia Protocol Glipizide (Glucotrol) 10 mg PO DAILY [facility] Last Admin: 01/25/19 09:12 Dose: 10 mg Glucagon (Glucagen Diagnostic Kit) 0 mg IM STAT PRN; Protocol PRN Reason: Hypoglycemia Protocol HCTZ/Losartan Potassium (Hyzaar 12.5 Mg-50 Mg) 1 tab PO DAILY [facility] Last Admin: 01/25/19 09:13 Dose: 1 tab Piperacillin Sod/Tazobactam (Sod 3.375 gm/ Sodium Chloride) 100 mls @ 100 mls/hr IVPB Q6H [facility]; Protocol Last Admin: 01/25/19 09:16 Dose: 100 mls/hr Vancomycin HCl 1 gm/ Sodium (Chloride) 250 mls @ 166.667 mls/hr IVPB Q12@0100,1300 [place]; Protocol Last Admin: 01/25/19 00:22 Dose: 166.667 mls/hr Insulin Human Lispro (Humalog) 0 units SC ACHS [facility]; Protocol Last Admin: 01/25/19 09:12 Dose: 3 units Metformin HCl (Glucophage) 1,000 mg PO BID [facility] Last Admin: 01/24/19 19:54 Dose: Not Given Metoprolol Tartrate (Lopressor) 50 mg PO Q12 [facility] Last Admin: 01/25/19 09:13 Dose: 50 mg Mupirocin (Bactroban Ointment) 1 applic TOP BID [facility] Last Admin: 01/25/19 09:12 Dose: 1 applic Physical Exam - Constitutional Appears: Non-toxic, No Acute Distress - Head Exam Head Exam: ATRAUMATIC - Eye Exam Eye Exam: EOMI, PERRL - ENT Exam ENT Exam: Normal Oropharynx - Neck Exam Neck exam: Positive for: Full Rom - Respiratory Exam Respiratory Exam: Clear to Auscultation Bilateral, NORMAL BREATHING PATTERN - Cardiovascular Exam Cardiovascular Exam: RRR, +S1, +S2 - GI/Abdominal Exam GI & Abdominal Exam: Normal Bowel Sounds, Soft Additional comments: NT, ND - Extremities Exam Additional comments: right plantar foot region between first and second toe region with small open uler region, no active dischareg, no malodor, no fluctuation, no eedema, no erythema - Neurological Exam Neurological exam: Alert, Oriented x3 Results - Vital Signs Recent Vital Signs: Last Vital Signs Temp 97.8 F 01/25/19 08:08 Pulse 76 01/25/19 09:13 Resp 19 01/25/19 08:08 BP 118/78 01/25/19 09:13 Pulse Ox 98 01/25/19 08:08 - Labs Result Diagrams: 01/24/19 13:00 01/24/19 13:00 Labs: Laboratory Results - last 24 hr 01/24/19 01/24/19 01/24/19 13:00 13:00 13:05 WBC 5.7 RBC 4.76 Hgb 13.9 Hct 40.9 MCV 86.0 MCH 29.3 MCHC 34.0 RDW 13.2 Plt Count 324 MPV 8.3 Neut % (Auto) 63.5 Lymph % (Auto) 29.7 [place] % (Auto) 5.3 Eos % (Auto) 0.8 Baso % (Auto) 0.7 Neut # (Auto) 3.7 Lymph # (Auto) 1.7 [place] # (Auto) 0.3 Eos # (Auto) 0.0 Baso # (Auto) 0.0 ESR 16 pO2 VBG pH VBG pCO2 VBG HCO3 VBG Total CO2 VBG O2 Sat (Calc) VBG Base Excess VBG Potassium Glucose Lactate FiO2 Sodium 137 Potassium 4.6 Chloride 98 Carbon Dioxide 29 Anion Gap 15 BUN 18 Creatinine 0.5 L Est GFR ( Amer) > 60 Est GFR (Non-Af Amer) > 60 POC Glucose (mg/dL) 268 H Random Glucose 299 H Calcium 9.6 Total Bilirubin 0.6 AST 19 ALT 20 L D Alkaline Phosphatase 97 C-Reactive Protein < 5.00 Total Protein 7.5 Albumin 4.3 Globulin 3.2 Albumin/Globulin Ratio 1.4 Venous Blood Potassium 01/24/19 01/24/19 01/24/19 13:16 17:27 21:58 WBC RBC Hgb Hct MCV MCH MCHC RDW Plt Count MPV Neut % (Auto) Lymph % (Auto) [place] % (Auto) Eos % (Auto) Baso % (Auto) Neut # (Auto) Lymph # (Auto) [place] # (Auto) Eos # (Auto) Baso # (Auto) ESR pO2 25 L VBG pH 7.36 VBG pCO2 54 VBG HCO3 26.3 VBG Total CO2 32.2 H VBG O2 Sat (Calc) 55.5 VBG Base Excess 3.7 H VBG Potassium 4.4 Glucose 307 H Lactate 2.0 FiO2 21.0 Sodium 134.0 Potassium Chloride 99.0 Carbon Dioxide Anion Gap BUN Creatinine Est GFR ( Amer) Est GFR (Non-Af Amer) POC Glucose (mg/dL) 191 H 191 H Random Glucose Calcium Total Bilirubin AST ALT Alkaline Phosphatase C-Reactive Protein Total Protein Albumin Globulin Albumin/Globulin Ratio Venous Blood Potassium 4.4 01/25/19 05:37 WBC RBC Hgb Hct MCV MCH MCHC RDW Plt Count MPV Neut % (Auto) Lymph % (Auto) [place] % (Auto) Eos % (Auto) Baso % (Auto) Neut # (Auto) Lymph # (Auto) [place] # (Auto) Eos # (Auto) Baso # (Auto) ESR pO2 VBG pH VBG pCO2 VBG HCO3 VBG Total CO2 VBG O2 Sat (Calc) VBG Base Excess VBG Potassium Glucose Lactate FiO2 Sodium Potassium Chloride Carbon Dioxide Anion Gap BUN Creatinine Est GFR ( Amer) Est GFR (Non-Af Amer) POC Glucose (mg/dL) 232 H Random Glucose Calcium Total Bilirubin AST ALT Alkaline Phosphatase C-Reactive Protein Total Protein Albumin Globulin Albumin/Globulin Ratio Venous Blood Potassium Microbiology 01/24/19 13:00 Foot - Right Gram Stain - Final Accession No. : [id number] Patient Name / ID : [place] / [id number] Exam Date : 01/24/2019 12:27:18 ( Approved ) Study Comment : Sex / Age : M / [id number] Creator : Siddharth Leahy MD Dictator : Siddharth Leahy MD Water And Fire Technician : Computer Hardware Designer : Siddharth Leahy MD Approver2 : Report Date : 01/24/2019 13:31:13 My Comment : Date of service: 01/24/2019 PROCEDURE: Right Foot Radiographs. HISTORY: RIGHT foot wound r/o osteo/foreign body COMPARISON: None. FINDINGS: BONES: No acute fracture or destructive bony lesion identified. No erosive changes are appreciated with suggest osteomyelitis at this time. There is a deformity of the 5th digit including limited lateral subluxation of the distal phalanx relative to the proximal phalanx with degenerative changes appreciated throughout the interphalangeal joints diffusely as well as the 1st metatarsophalangeal joint. JOINTS: No subluxation or dislocation. SOFT TISSUES: Vascular calcifications are identified anteriorly as well as posteriorly at the level of the ankle and dorsal midfoot. OTHER FINDINGS: None. IMPRESSION: No overt radiographic pattern to suggest osteomyelitis. Degenerative changes seen as discussed above as well as likely degenerative lateral subluxation of the distal phalanx left 5th digit laterally. No acute fracture or dislocation appreciated. Assessment & Plan (1) Diabetic foot infection Status: Acute (2) HTN (hypertension) Status: Acute - Assessment and Plan (Free Text) Assessment: Assessment and plan Patient is a 58-year-old male with diabetes who had stepped on a nail while at work 2 weeks ago developed an ulcer which has not responded to oral antibiotics which she was given as outpatient and hence he came to hospital to be evaluated. Patient is afebrile. Has normal WBC count. Foot x-ray as per reportno OM. Wound culturepending Plan Advised to continue with the current antibiotics that were initiated by the admi tting team, Zosyn and vancomycin. Keep Vanco trough less than 15. Await the results of flex MRI. Check ESR. If MRI is negative for osteo then patient would most likely be able to be discharged on oral antibiotics pending wound culture results. All above discussed with patient and he verbalizes full understanding of all above and agrees with plan of care. Thank you for allowing me to take part in the care of this patient.
--- NOTE | 2019-01-25 14:03 | CP.PCM.PN ---
Subjective - Date & Time of Evaluation Date of Evaluation: 01/25/19 Time of Evaluation: 13:59 - Subjective Subjective: Podiatry progress note - Dr. Tran 58M seen and evaluated at bedside this AM. States he is in no pain and appears resting comfortably. Patients son is present bedside. Denies n/v/f/c/sob/cp and has no other pedal complaints. Objective - Vital Signs/Intake and Output Vital Signs (last 24 hours): Temp Pulse Resp BP Pulse Ox 97.8 F 76 19 118/78 98 01/25/19 08:08 01/25/19 09:13 01/25/19 08:08 01/25/19 09:13 01/25/19 08:08 - Medications Medications: Current Medications Clopidogrel Bisulfate (Plavix) 75 mg PO DAILY [facility] Last Admin: 01/25/19 09:20 Dose: 75 mg Dextrose (Dextrose 50% Inj) 0 ml IV STAT PRN; Protocol PRN Reason: Hypoglycemia Protocol Dextrose (Glutose 15) 0 gm PO ONCE PRN; Protocol PRN Reason: Hypoglycemia Protocol Glipizide (Glucotrol) 10 mg PO DAILY [facility] Last Admin: 01/25/19 09:12 Dose: 10 mg Glucagon (Glucagen Diagnostic Kit) 0 mg IM STAT PRN; Protocol PRN Reason: Hypoglycemia Protocol HCTZ/Losartan Potassium (Hyzaar 12.5 Mg-50 Mg) 1 tab PO DAILY [facility] Last Admin: 01/25/19 09:13 Dose: 1 tab Piperacillin Sod/Tazobactam (Sod 3.375 gm/ Sodium Chloride) 100 mls @ 100 mls/hr IVPB Q6H [facility]; Protocol Last Admin: 01/25/19 09:16 Dose: 100 mls/hr Vancomycin HCl 1 gm/ Sodium (Chloride) 250 mls @ 166.667 mls/hr IVPB Q12@0100,1300 [facility]; Protocol Last Admin: 01/25/19 12:33 Dose: 166.667 mls/hr Insulin Human Lispro (Humalog) 0 units SC ACHS [facility]; Protocol Last Admin: 01/25/19 12:34 Dose: 8 units Metformin HCl (Glucophage) 1,000 mg PO BID [facility] Last Admin: 01/24/19 19:54 Dose: Not Given Metoprolol Tartrate (Lopressor) 50 mg PO Q12 [facility] Last Admin: 01/25/19 09:13 Dose: 50 mg Mupirocin (Bactroban Ointment) 1 applic TOP BID [facility] Last Admin: 01/25/19 09:12 Dose: 1 applic - Labs Labs: 01/24/19 13:00 01/24/19 13:00 - Constitutional Appears: Non-toxic - Head Exam Head Exam: ATRAUMATIC - Extremities Exam Additional comments: Right lower extremity focused exam: Vascular: DP/PT are 2/4, Cap refill < 3 seconds to all digits, Temp gradient warm to cool from proximal to distal, no edema appreciated to b/l extremities. Neuro: Gross sensation intact, protective sensation diminished. Derm: An ulcer noted in the plantar aspect of the 2nd MPJ 1.9 cm X 1.2 cm X 0.5 cm. Base is necrotic. positive purulent drainage noted. Positive tracking, positive undermining, positive probe to bone. Mild lynsey-ulcerative erythema noted. MSK: Muscle power 5/5 to all groups, No pain noted on palpating the lynsey- ulcerative areas. - Neurological Exam Neurological Exam: Alert, Awake, Oriented x3 - Psychiatric Exam Psychiatric exam: Normal Affect, Normal Mood Assessment and Plan - Assessment and Plan (Free Text) Assessment: 58M with right foot infected ulceration Plan: Patient seen and evaluated Discussed in detail with Dr. Tran Afebrile, WBC 5.7 (3/8) ESR 16, CRP <5 Wound culture pending Right foot 3 views X-ray; No acute findings suggestive of OM. LE CEDRICK/PVR ordered. Right foot MRI - no acute bony abnormalities, correlate clinically Ulcer cleansed with sterile saline and dressed with bactroban and DSD ID on board Reccs appreciated. Discharge patient with PO abx per medicine and ID Stable for discharge, will follow up in podiatry clinic with Dr. Tran Keep dressing clean dry and intact until visit
--- NOTE | 2019-01-25 16:32 | CP.PCM.DIS ---
<Otf Dolan - Last Filed: 01/25/19 16:27> Provider - Provider Date of Admission: 01/24/19 12:38 Attending physician: Laura Hayden DO Consults: 01/24/19 13:02 Infectious Disease Consult Routine Comment: Right submet 2 ulceration Consulting Provider: Rickey Curry Consulting Physician: Rickey Curry Reason for Consult: Right submet 2 ulceration 01/24/19 13:24 Podiatry Consult Stat Comment: Consulting Provider: Dmitry Tran Consulting Physician: Dmitry Tran Reason for Consult: RIGHT foot infection and posible osteomyelitis Time Spent in preparation of Discharge (in minutes): 30 Hospital Course - Lab Results Lab Results: Micro Results 01/24/19 11:35 Blood-Venous Blood Culture - Preliminary NO GROWTH AFTER 24 HOURS 01/24/19 13:00 Blood-Venous Blood Culture - Preliminary NO GROWTH AFTER 24 HOURS 01/24/19 13:00 Foot - Right Gram Stain - Final Most Recent Lab Values WBC 5.7 K/uL (4.8-10.8) 01/24/19 13:00 RBC 4.76 Mil/uL (4.40-5.90) 01/24/19 13:00 Hgb 13.9 g/dL (12.0-18.0) 01/24/19 13:00 Hct 40.9 % (35.0-51.0) 01/24/19 13:00 MCV 86.0 fl (80.0-94.0) 01/24/19 13:00 MCH 29.3 pg (27.0-31.0) 01/24/19 13:00 MCHC 34.0 g/dL (33.0-37.0) 01/24/19 13:00 RDW 13.2 % (11.5-14.5) 01/24/19 13:00 Plt Count 324 K/uL (130-400) 01/24/19 13:00 MPV 8.3 fl (7.2-11.7) 01/24/19 13:00 Neut % (Auto) 63.5 % (50.0-75.0) 01/24/19 13:00 Lymph % (Auto) 29.7 % (20.0-40.0) 01/24/19 13:00 [place] % (Auto) 5.3 % (0.0-10.0) 01/24/19 13:00 Eos % (Auto) 0.8 % (0.0-4.0) 01/24/19 13:00 Baso % (Auto) 0.7 % (0.0-2.0) 01/24/19 13:00 Neut # (Auto) 3.7 K/uL (1.8-7.0) 01/24/19 13:00 Lymph # (Auto) 1.7 K/uL (1.0-4.3) 01/24/19 13:00 Amelia # (Auto) 0.3 K/uL (0.0-0.8) 01/24/19 13:00 Eos # (Auto) 0.0 K/uL (0.0-0.7) 01/24/19 13:00 Baso # (Auto) 0.0 K/uL (0.0-0.2) 01/24/19 13:00 ESR 16 mm/hr (0-20) 01/24/19 13:00 pO2 25 mm/Hg (30-55) L 01/24/19 13:16 VBG pH 7.36 (7.32-7.43) 01/24/19 13:16 VBG pCO2 54 mmHg (40-60) 01/24/19 13:16 VBG HCO3 26.3 mmol/L 01/24/19 13:16 VBG Total CO2 32.2 mmol/L (22-28) H 01/24/19 13:16 VBG O2 Sat (Calc) 55.5 % (40-65) 01/24/19 13:16 VBG Base Excess 3.7 mmol/L (0.0-2.0) H 01/24/19 13:16 VBG Potassium 4.4 mmol/L (3.6-5.2) 01/24/19 13:16 Sodium 134.0 mmol/L (132-148) 01/24/19 13:16 Chloride 99.0 mmol/L (98-107) 01/24/19 13:16 Glucose 307 mg/dL (75-110) H 01/24/19 13:16 Lactate 2.0 mmol/L (0.7-2.1) 01/24/19 13:16 FiO2 21.0 % 01/24/19 13:16 Sodium 137 mmol/l (132-148) 01/24/19 13:00 Potassium 4.6 MMOL/L (3.6-5.0) 01/24/19 13:00 Chloride 98 mmol/L (98-107) 01/24/19 13:00 Carbon Dioxide 29 mmol/L (22-30) 01/24/19 13:00 Anion Gap 15 (10-20) 01/24/19 13:00 BUN 18 mg/dl (9-20) 01/24/19 13:00 Creatinine 0.5 mg/dl (0.8-1.5) L 01/24/19 13:00 Est GFR ( Amer) > 60 01/24/19 13:00 Est GFR (Non-Af Amer) > 60 01/24/19 13:00 POC Glucose (mg/dL) 370 mg/dL (65-110) H 01/25/19 10:47 Random Glucose 299 mg/dL (75-110) H 01/24/19 13:00 Calcium 9.6 mg/dL (8.4-10.2) 01/24/19 13:00 Total Bilirubin 0.6 mg/dl (0.2-1.3) 01/24/19 13:00 AST 19 U/L (17-59) 01/24/19 13:00 ALT 20 U/L (21-72) L D 01/24/19 13:00 Alkaline Phosphatase 97 U/L (38-126) 01/24/19 13:00 C-Reactive Protein < 5.00 mg/L (0.0-9.9) 01/24/19 13:00 Total Protein 7.5 G/DL (6.3-8.2) 01/24/19 13:00 Albumin 4.3 g/dL (3.5-5.0) 01/24/19 13:00 Globulin 3.2 gm/dL (2.2-3.9) 01/24/19 13:00 Albumin/Globulin Ratio 1.4 (1.0-2.1) 01/24/19 13:00 Venous Blood Potassium 4.4 mmol/L (3.6-5.2) 01/24/19 13:16 - Hospital Course Hospital Course: 58 yo male with pmhx of diabetes and hypertension seen and evaluated in the ED for right foot puncture wound with possible osteomyelitis. Patient has failed outpatient augmentin. Right foot puncture wound -Continue with vancomycin 1 gm q12 and zosyn 3.375 q6 -Wound cultures ordered and pending -Blood cultures NG 24 hrs -X-ray of the right foot: no foreign body noted, no cortical erosions noted -MRI of the right foot: no osteomyelitis -Podiatry -ID: Dr. Singh Diabetes Mellitus - humalog, metformin, and glipizide Hypertension - HCTZ/Losartan Pt discharged with oral abx and ER precautions to f/u with pmd in 3-5 days and podiatry clinic case and plan dw Dr. Catracho Dolan MD PGY2 Discharge Exam - Head Exam Head Exam: ATRAUMATIC - Eye Exam Eye Exam: EOMI - ENT Exam ENT Exam: Mucous Membranes Moist - Respiratory Exam Respiratory Exam: Clear to PA & Lateral, NORMAL BREATHING PATTERN. absent: Wheezes - Cardiovascular Exam Cardiovascular Exam: +S1, +S2 - GI/Abdominal Exam GI & Abdominal Exam: Normal Bowel Sounds, Soft. absent: Tenderness - Extremities Exam Additional comments: r foot ulcer wrapped in dressing - Neurological Exam Neurological exam: Abnormal Gait (2/2 puncture wound of foot), Alert, CN II-XII Intact, Oriented x3 - Psychiatric Exam Psychiatric exam: Normal Affect, Normal Mood Discharge Plan - Discharge Medications Prescriptions: Ciprofloxacin [Cipro] 500 mg PO Q12 #20 tab Clopidogrel [Plavix] 75 mg PO DAILY #30 tab Glipizide [Glucotrol] 10 mg PO DAILY #30 tablet HCTZ/Losartan Potassium [Hyzaar 12.5 mg-50 mg] 1 tab PO DAILY #30 tab MetFORMIN [glucoPHAGE] 1,000 mg PO BID #60 tab Metoprolol Tartrate [Lopressor] 50 mg PO Q12 #30 tablet - Follow Up Plan Condition: FAIR Disposition: HOME/ ROUTINE Instructions: Hypertension (DC), Hypertension (GEN) <Laura Hayden - Last Filed: 01/25/19 18:03> Provider - Provider Date of Admission: 01/24/19 12:38 Attending physician: Laura Hayden DO Consults: 01/24/19 13:02 Infectious Disease Consult Routine Comment: Right submet 2 ulceration Consulting Provider: Rickey Curry Consulting Physician: Rickey Curry Reason for Consult: Right submet 2 ulceration 01/24/19 13:24 Podiatry Consult Stat Comment: Consulting Provider: Dmitry Tran Consulting Physician: Dmitry Tran Reason for Consult: RIGHT foot infection and posible osteomyelitis Hospital Course - Lab Results Lab Results: Micro Results 01/24/19 11:35 Blood-Venous Blood Culture - Preliminary NO GROWTH AFTER 24 HOURS 01/24/19 13:00 Blood-Venous Blood Culture - Preliminary NO GROWTH AFTER 24 HOURS 01/24/19 13:00 Foot - Right Gram Stain - Final Most Recent Lab Values WBC 5.7 K/uL (4.8-10.8) 01/24/19 13:00 RBC 4.76 Mil/uL (4.40-5.90) 01/24/19 13:00 Hgb 13.9 g/dL (12.0-18.0) 01/24/19 13:00 Hct 40.9 % (35.0-51.0) 01/24/19 13:00 MCV 86.0 fl (80.0-94.0) 01/24/19 13:00 MCH 29.3 pg (27.0-31.0) 01/24/19 13:00 MCHC 34.0 g/dL (33.0-37.0) 01/24/19 13:00 RDW 13.2 % (11.5-14.5) 01/24/19 13:00 Plt Count 324 K/uL (130-400) 01/24/19 13:00 MPV 8.3 fl (7.2-11.7) 01/24/19 13:00 Neut % (Auto) 63.5 % (50.0-75.0) 01/24/19 13:00 Lymph % (Auto) 29.7 % (20.0-40.0) 01/24/19 13:00 Amelia % (Auto) 5.3 % (0.0-10.0) 01/24/19 13:00 Eos % (Auto) 0.8 % (0.0-4.0) 01/24/19 13:00 Baso % (Auto) 0.7 % (0.0-2.0) 01/24/19 13:00 Neut # (Auto) 3.7 K/uL (1.8-7.0) 01/24/19 13:00 Lymph # (Auto) 1.7 K/uL (1.0-4.3) 01/24/19 13:00 Amelia # (Auto) 0.3 K/uL (0.0-0.8) 01/24/19 13:00 Eos # (Auto) 0.0 K/uL (0.0-0.7) 01/24/19 13:00 Baso # (Auto) 0.0 K/uL (0.0-0.2) 01/24/19 13:00 ESR 16 mm/hr (0-20) 01/24/19 13:00 pO2 25 mm/Hg (30-55) L 01/24/19 13:16 VBG pH 7.36 (7.32-7.43) 01/24/19 13:16 VBG pCO2 54 mmHg (40-60) 01/24/19 13:16 VBG HCO3 26.3 mmol/L 01/24/19 13:16 VBG Total CO2 32.2 mmol/L (22-28) H 01/24/19 13:16 VBG O2 Sat (Calc) 55.5 % (40-65) 01/24/19 13:16 VBG Base Excess 3.7 mmol/L (0.0-2.0) H 01/24/19 13:16 VBG Potassium 4.4 mmol/L (3.6-5.2) 01/24/19 13:16 Sodium 134.0 mmol/L (132-148) 01/24/19 13:16 Chloride 99.0 mmol/L (98-107) 01/24/19 13:16 Glucose 307 mg/dL (75-110) H 01/24/19 13:16 Lactate 2.0 mmol/L (0.7-2.1) 01/24/19 13:16 FiO2 21.0 % 01/24/19 13:16 Sodium 137 mmol/l (132-148) 01/24/19 13:00 Potassium 4.6 MMOL/L (3.6-5.0) 01/24/19 13:00 Chloride 98 mmol/L (98-107) 01/24/19 13:00 Carbon Dioxide 29 mmol/L (22-30) 01/24/19 13:00 Anion Gap 15 (10-20) 01/24/19 13:00 BUN 18 mg/dl (9-20) 01/24/19 13:00 Creatinine 0.5 mg/dl (0.8-1.5) L 01/24/19 13:00 Est GFR ( Amer) > 60 01/24/19 13:00 Est GFR (Non-Af Amer) > 60 01/24/19 13:00 POC Glucose (mg/dL) 370 mg/dL (65-110) H 01/25/19 10:47 Random Glucose 299 mg/dL (75-110) H 01/24/19 13:00 Calcium 9.6 mg/dL (8.4-10.2) 01/24/19 13:00 Total Bilirubin 0.6 mg/dl (0.2-1.3) 01/24/19 13:00 AST 19 U/L (17-59) 01/24/19 13:00 ALT 20 U/L (21-72) L D 01/24/19 13:00 Alkaline Phosphatase 97 U/L (38-126) 01/24/19 13:00 C-Reactive Protein < 5.00 mg/L (0.0-9.9) 01/24/19 13:00 Total Protein 7.5 G/DL (6.3-8.2) 01/24/19 13:00 Albumin 4.3 g/dL (3.5-5.0) 01/24/19 13:00 Globulin 3.2 gm/dL (2.2-3.9) 01/24/19 13:00 Albumin/Globulin Ratio 1.4 (1.0-2.1) 01/24/19 13:00 Venous Blood Potassium 4.4 mmol/L (3.6-5.2) 01/24/19 13:16 Attending/Attestation - Attestation I have personally seen and examined this patient.: Yes I have fully participated in the care of the patient.: Yes I have reviewed all pertinent clinical information, including history, physical exam and plan: Yes Notes (Text): 01/25/19 18:03 agree with findnigs and plan as above.
--- NOTE | 2019-01-25 18:43 | MRI ---
Date of service: 01/24/2019 PROCEDURE: MRI Right Foot HISTORY: Pain. COMPARISON: None available. TECHNIQUE: Multiecho multiplanar sequences were performed through the right foot without the use of intravenous contrast. FINDINGS: BONES: No fracture. Normal marrow signal. MUSCLES: Normal. SOFT TISSUES: Normal. LISFRANC LIGAMENT: Normal. PLANTAR PLATE: Normal. EXTENSOR TENDONS: Normal. FLEXOR TENDONS: Normal. OTHER FINDINGS: Mild dorsal soft tissue edema. IMPRESSION: Mild dorsal soft tissue edema. No evidence of osteomyelitis.
--- NOTE | 2019-01-27 14:20 | US ---
Date of service: 01/24/2019 PROCEDURE: Lower Extremity Arterial Exam. HISTORY: Right Submet 2 ulcer, DM COMPARISON: None available. TECHNIQUE: Grayscale and duplex Doppler evaluation of the bilateral common femoral, femoral, profunda femoral, popliteal, posterior tibial, anterior tibial and dorsalis pedis arteries was performed. Report prepared by ultrasound technologist. FINDINGS: RIGHT LOWER EXTREMITY: * Common Femoral Artery: Peak Systolic Velocity-61.5: Doppler Waveform: Triphasic.: Plaque description - * Femoral Artery o Proximal Segment: Peak Systolic Velocity-73.9: Doppler Waveform: Triphasic.: Plaque description - o Middle Segment: Peak Systolic Velocity-72.4: Doppler Waveform: Triphasic.: Plaque description - o Distal Segment: Peak Systolic Velocity-69.8: Doppler Waveform: Triphasic.: Plaque description - * Popliteal Artery o Peak Systolic Velocity-63.8: Doppler Waveform: Triphasic.: Plaque description - * Posterior Tibial Artery: Peak Systolic Velocity-70.3: Doppler Waveform: Triphasic.: Plaque description - * Anterior Tibial Artery: Peak Systolic Velocity-49.7: Doppler Waveform: Biphasic: Plaque description - * Dorsalis Pedis Artery: Not visible, obscured by overlying bandage. LEFT LOWER EXTREMITY: * Common Femoral Artery: Peak Systolic Velocity-77.5: Doppler Waveform: Triphasic.: Plaque description - * Superficial femoral Artery o Proximal Segment: Peak Systolic Velocity-55.8: Doppler Waveform: Triphasic.: Plaque description - o Middle Segment: Peak Systolic Velocity-72.4: Doppler Waveform: Triphasic.: Plaque description - o Distal Segment: Peak Systolic Velocity-74.3: Doppler Waveform: Triphasic.: Plaque description - * Popliteal Artery o Peak Systolic Velocity-49.0: Doppler Waveform: Triphasic.: Plaque description - * Posterior Tibial Artery: Peak Systolic Velocity-62.8: Doppler Waveform: Triphasic.: Plaque description - * Anterior Tibial Artery: Peak Systolic Velocity-60.7: Doppler Waveform: Triphasic.: Plaque description - * Dorsalis Pedis Artery: Peak Systolic Velocity-24.3: Doppler Waveform: Monophasic: Plaque description - OTHER FINDINGS: None. IMPRESSION: There is no evidence of hemodynamically significant arterial insufficiency in both lower extremities.
--- NOTE | 2019-01-27 20:48 | CARD ---
APPROVED REPORT Date of service: 01/25/2019 EKG Measurement Heart [id number] [id number] <Conclusion> Sinus rhythm with occasional premature ventricular complexes Otherwise normal ECG
== END 2019-01-25 16:04 | disposition home or self-care (01) | DRG 380 ==
LOC: H.ER 09:57 → H.ERHOLD 12:38 → H.MEDSURG1 16:50
PROVIDERS: ADMIT Student in an Organized Health Care Education/Training Program; ATTEND Student in an Organized Health Care Education/Training Program
DX: E11.621 Type 2 diabetes mellitus with foot ulcer (principal); L97.519 Non-pressure chronic ulcer of other part of right foot with unspecified severity; E11.42 Type 2 diabetes mellitus with diabetic polyneuropathy; E78.00 Pure hypercholesterolemia, unspecified; E78.5 Hyperlipidemia, unspecified; I10 Essential (primary) hypertension; W45.0XXA Nail entering through skin, initial encounter; Z79.02 Long term (current) use of antithrombotics/antiplatelets; Z79.84 Long term (current) use of oral hypoglycemic drugs; S91.331A Puncture wound without foreign body, right foot, initial encounter